=== PATIENT | female | born 1950 | race Caucasian/White ===

== ENCOUNTER → 2017-09-12 | Outpatient (CLI) | payer MEDICARE, OTHER ==
[~2017-09-12] MED LIST: ALDACTONE50 MG PO; ASPIRIN325 PO; EVISTA PO; FENOFIBRATE160 MG PO; FISH OIL 1,001000 M2 PO; LIDODERM 5%1 PATC1 TOP; METFORMIN HCL500 MG PO; OMEPRAZOLE40 MG PO; OXYCODONE HCL5 M1 PO; OXYCONTIN10 M1 PO; PROZAC20 MG PO; SIMVASTATIN40 MG PO; XARELTO10 M1 PO; XARELTO10 MG PO
== END ==
LOC: M.RAD 14:28
DX: Z12.31 Encounter for screening mammogram for malignant neoplasm of breast (principal); Z78.0 Asymptomatic menopausal state

== ENCOUNTER → 2018-09-25 | Outpatient (CLI) | payer MEDICARE, OTHER | LOC: M.RAD 10:40 | DX: Z12.31 Encounter for screening mammogram for malignant neoplasm of breast (principal) ==

== ENCOUNTER → 2018-09-27 | Outpatient (CLI) | payer MEDICARE, OTHER | LOC: M.ULTRA 13:13 | DX: N63.24 Unspecified lump in the left breast, lower inner quadrant (principal) ==

== ENCOUNTER → 2018-10-04 | Outpatient (CLI) | payer MEDICARE, OTHER ==
--- NOTE | 2018-10-05 15:06 | PATH ---
[address] [address] PATHOLOGY RPT PROCEDURE Name: SOHPIA FELIPE Room: [facility] LISSY Fierro#: [id number] Admission: 10/04/18 Date of : 52 Discharge: Report #: [id number] Path Case #: [id number] LCA Accession Number: [id number] . 01 Material submitted: . breast - LEFT BREAST BIOPSY. Modifiers: left . 01 Clinical history: . Left breast stereotactic biopsy for nodule with calcification . 02 Diagnosis: Left breast nodule with calcification, stereotactic biopsy: - INFILTRATING DUCTAL ADENOCARCINOMA, LOW GRADE, SPANNING 4 MM. SEE COMMENT. (RENEE:crystal; 10/05/2018) QMS/10/05/2018 . 02 Comment: Specimen type: Stereotactic biopsy Tumor site: Left breast Tumor quantitation: Approximately 20% of submitted tissues Histologic type: Ductal adenocarcinoma Histologic grade: Low grade (I of III) Tubules, nuclei and mitoses: 1, 2, 1 LVSI: Not identified Microcalcifications: Identified in non-neoplastic tissue Markers: Breast tumor profile pending Block: A2 . . Breast tumor profile studies are pending on A2 and will be the subject of an addendum report. Reviewed with Dr. Colin Menendez, who agrees with the diagnosis. Suha Ruth ([facility] Breast Navigator) notified at approximately 1440 on 10/05/2018. . (RENEE:crystal; 10/05/2018) . 02 Electronically signed: . George Alvarado MD, Pathologist NPI- [id number] . 01 Gross description: . The specimen is received in formalin, labeled "Sophia Felpie, left breast, stereotactic biopsy for nodule with calcification", consist of a blue cassette with fibroadipose core measuring 1.4 cm in length and up to 0.5 cm in diameter. This specimen is transferred into A1. Also received are multiple similar fibrofatty cores measuring 2.4 x 1.1 x 0.7 cm in aggregate, these are entirely submitted in A2-[place] [address] PATHOLOGY RPT PROCEDURE Name: SOPHIA FELIPE Room: [facility] Sri#: [id number] Admission: 10/04/18 Date of : 52 Discharge: Report #: [id number] Path Case #: [id number] . The specimen was excised at 0900 on 10/04/18, placed in formalin at 0905 on 10/04/18, formalin exposure: Approximately 14 hours and 35 minutes. (SWS; 10/04/2018) SHS/SHS . 02 Pathologist provided ICD-10: C50.912 . 02 CPT . 532493 Specimen Comment: A courtesy copy of this report has been sent to Specimen Comment: [phone], , . Specimen Comment: Report sent to ,DR MUÑIZ / DR RUTH Performed at: [address], [place], [place] [address] MD Milton Raya MD Phone: [phone] Performed at: [address] [address] [address], [place], [place] [id number] MD George Alvarado MD Phone: [phone]
== END ==
LOC: M.ULTRA 08:18
DX: C50.912 Malignant neoplasm of unspecified site of left female breast (principal); R92.0 Mammographic microcalcification found on diagnostic imaging of breast

== ENCOUNTER → 2018-10-18 | Outpatient (CLI) | payer MEDICARE, OTHER | LOC: M.LAB 10:30 → M.MRI 11:30 | PROVIDERS: Surgery | DX: C50.812 Malignant neoplasm of overlapping sites of left female breast (principal) ==

== ENCOUNTER → 2018-10-20 | Outpatient (CLI) | payer MEDICARE, OTHER ==
--- NOTE | ~2018-10-20 | CON ---
[address] [address] CONSULTATION Name: DANA SCHAEFFER Room: [facility].#: [id number] Admission: 10/20/18 Attend Phys: Arik Nelson MD Discharge: Date of : 52 Report #: [id number] THIS REPORT FOR: //name// CC: Arik Luz DATE OF SERVICE: 10/20/2018 REFERRING PHYSICIANS: Include Dr. Rito Sampson, Dr. Lawanda Mendoza, Dr. Tonie Luz. PRIMARY SITE AND HISTOPATHOLOGY: The patient has findings consistent with an infiltrating ductal carcinoma involving the left breast. HISTORY OF PRESENT ILLNESS: The patient had a screening mammogram performed on 09/25/2018 and that revealed a new partially circumscribed nodular opacity involving the left breast. There was a left breast ultrasound revealed a hyperechoic mass with internal echoes at the 7 o'clock position, which was suspicious for neoplasm. The patient underwent a stereotactic biopsy on 10/04/2018. This revealed a low-grade infiltrating ductal carcinoma that spanned about 0.4 cm, which was 98% estrogen receptor positive, 98% pressure progesterone receptor positive and HER2/reina was equivocal with FISH being negative. The patient had an MRI on 10/18/2018, and the MRI revealed a small biopsy cavity at the 9 o'clock position of the left inner central breast, which correspond to the stereotactic biopsy site. There was a small benign-appearing nodule. There is no evidence for malignant lymphadenopathy. The patient denied having any palpable masses in her right breast or left breast. She denied having any nipple discharge. She presents to discuss treatment options. PAST MEDICAL HISTORY AND PAST SURGICAL HISTORY: The patient has a history of diabetes, hiatal hernia, history of migraines. She had a tonsillectomy at the age of 22 and the left hip replacement on 01/10/2017. MEDICATIONS: Include she used to take raloxifene and that was discontinued. She is now on fluoxetine, omeprazole, spironolactone, metformin, simvastatin. ALLERGIES: BACTRIM, WHICH CAUSES HIVES. SCOPOLAMINE PATCH CAUSES NAUSEA AND DIZZINESS AND PROGESTERONE MADE HER FEEL ANXIOUS. GYNECOLOGY HISTORY: Menarche at age 11-12, menopause in her 50s. She is 4, para 2, SAB 2 SOCIAL HISTORY: She is a retired nurse. Cigarettes, she does not smoke cigarettes. Ethanol, she does not drink alcohol containing beverages. REVIEW OF SYSTEMS: [place] [address] CONSULTATION Name: DANA SCHAEFFER Room: [facility]#: [id number] Admission: 10/20/18 Attend Phys: Arik Nelson MD Discharge: Date of : 52 Report #: [id number] GENERAL: She denied having fevers or chills. SKIN: She denied having color changes. LYMPH NODES: She denied having enlarged or painful glands in the neck. ENDOCRINE: She denied any hot or cold intolerance. HEMATOLOGY/IMMUNOLOGY: She denied having any recent bleeding. MUSCULOSKELETAL: She denied any arthritis or painful swollen joints. HEAD AND NECK: She denied having any headaches or migraines. RESPIRATORY: She denies having shortness of breath. CARDIOVASCULAR: She denied having palpitations. GASTROINTESTINAL: She denies having any nausea. NEUROLOGIC: She does have some left lower extremity weakness after her hip replacement. FAMILY HISTORY: Mother had breast cancer around the age of 56. She of a glioblastoma at the age of 73. PHYSICAL EXAMINATION: With my nurse, Em Wheeler, present: VITAL SIGNS: Height 5 feet 5 inches, weight 163.6 pounds, blood pressure 127/74, pulse 71, oxygen saturation 96%, respirations 16. LYMPH NODES: She had no palpable cervical or supraclavicular or axillary lymphadenopathy. GENERAL AND PSYCHIATRIC: She was alert, oriented, in no acute distress. EYES: Pupils are equal, round, react to light and accommodation. Extraocular movement was intact. HEAD, EARS, NOSE AND MOUTH:: Mouth had no visible lesions. HEART: Had a regular rate and rhythm without murmur. LUNGS: Clear to auscultation. BREASTS: Left breast had a small 1 cm seroma around the biopsy site. There were no suspicious palpable masses involving the left breast, no suspicious palpable masses involving the right breast. ABDOMEN: Not tender, spleen was not palpable. Liver was at the costal margin. HEART: Regular rate and rhythm without murmur. LUNGS: Clear to auscultation. EXTREMITIES: Had no clubbing, cyanosis or edema. NEUROLOGIC: Cranial nerves 2-12 are intact. Sensation was intact. The patient had 5/5 strength in her extremities. ASSESSMENT AND PLAN: The patient appears to have early stage estrogen receptor positive breast cancer involving the left breast. She was told her treatment options include mastectomy versus breast conservation therapy consisting of lumpectomy and lymph node sampling and radiation therapy. This is based on studies such as NSABP B-06 where patients with early breast cancer were randomized between total mastectomy versus lumpectomy alone versus lumpectomy and radiation therapy, and there was no significant difference in survival at 20 years followup, the addition of radiation therapy to lumpectomy reduced the local failure rate from 39% to 14%. The patient wanted to [place] [address] CONSULTATION Name: DANA SCHAEFFER Room: [facility]#: [id number] Admission: 10/20/18 Attend Phys: Arik Nelson MD Discharge: Date of : 52 Report #: [id number] conservation therapy. So the risks, benefits, logistics of radiation therapy explained to the patient in detail. She gave her witnessed informed consent to proceed with radiation therapy. Also based on the [place] study where they looked at accelerated radiation therapy versus not accelerated radiation therapy as part of breast conservation therapy and found no difference in outcome. The patient will be also offered accelerated radiation therapy if her lymph nodes were not involved with breast cancer. Thank you very much for this consult. By: 1743 1512Dpatrick Nelson MD /nt
== END ==
LOC: M.RTH 05:02
DX: C50.912 Malignant neoplasm of unspecified site of left female breast (principal); E11.9 Type 2 diabetes mellitus without complications; G43.909 Migraine, unspecified, not intractable, without status migrainosus; Z98.890 Other specified postprocedural states; Z79.899 Other long term (current) drug therapy; Z88.1 Allergy status to other antibiotic agents; Z78.0 Asymptomatic menopausal state; Z80.3 Family history of malignant neoplasm of breast

== ENCOUNTER → 2018-10-30 | Day surgery (SDC) | payer MEDICARE, OTHER ==
[~2018-10-30] MED LIST changes: +HYDROCODONE-AP1 EAC6 PO
--- NOTE | ~2018-10-30 | OP ---
[address] [address] OPERATIVE REPORT Name: DANA SCHAEFFER Room: [facility].#: [id number] Admission: 10/30/18 Attend Phys: Rito Sampson DO Discharge: Date of : 52 Report #: [id number] THIS REPORT FOR: //name// CC: Rito MUÑIZ DO Tonie Muñiz DATE OF SERVICE: 10/30/2018 REFERRING PHYSICIAN: Tonie Muñiz D.O. PREOPERATIVE DIAGNOSIS: Invasive ductal carcinoma of the left breast. POSTOPERATIVE DIAGNOSIS: Invasive ductal carcinoma of the left breast. PROCEDURE: Left breast lumpectomy with wire localization and left axillary sentinel lymph node biopsy. SURGEON: Rito Sampson D.O. INTERNET MARKETING CONSULTANT: Miguel Lares D.O. SECOND YARD OPERATOR: Katelin Atwood D.O. ANESTHESIA: General endotracheal. ESTIMATED BLOOD LOSS: Less than 30 mL. COMPLICATIONS: None. DESCRIPTION OF PROCEDURE: After obtaining proper consents and discussing risks and complications with the patient, she was taken to the Radiology Department where she underwent wire localization of a previously biopsied left breast mass. She also underwent a nuclear medicine injection for left axillary sentinel lymph node biopsy. She was then brought back to the preoperative area. The films were reviewed and then she was taken to the operating room where she was administered general anesthesia with an LMA. She was then prepped and draped in the usual fashion. We did inject 5 mg of Lymphazurin blue dye into the periareolar region of the left breast and this was massaged for 5 minutes prior to starting any surgery. At this point, I then made a small incision around the patient's wire, which was in the left breast. I used a sharp dissection with Metzenbaum scissors to dissect the area around the wire and beyond it out. Once the specimen was completely removed, it was marked using a vector marking system painting the 6 areas around the specimen. The specimen was then sent for radiologic confirmation that it contained the clip from the previous biopsy site. While we awaited that, I did begin the [place] [address] OPERATIVE REPORT Name: DANA SCHAEFFER Room: [facility].#: [id number] Admission: 10/30/18 Attend Phys: Rito Sampson DO Discharge: Date of : 52 Report #: [id number] dissection. First Neoprobe was used to identify the area of most uptake in the left axilla. A small 3 cm incision was then made in the left axilla, carried down through the skin into the subcutaneous tissue using electrocautery for hemostasis. Utilizing the Neoprobe during the entire procedure, I did identify an area of most uptake and I dissected along this area. We were able to actually see the Lymphazurin blue dye as it coursed through some small lymphatic vessels going to the lymph node, which had the most uptake as well as a blue dye color. This lymph node was excised using blunt and sharp dissection. I also used metallic clips to assure hemostasis and to take the lymphatic vessels going into the lymph node. Following this, on the back table, we did use the Neoprobe to check for uptake. There were quite high values; however, when I used the Neoprobe in the axilla again, we did obtain more readings in the axilla, which were consistent with at least 1 more lymph node. I continued dissection until we identified a lymph node, which was slightly larger than the previous one, but had no blue color going to it, but we did have high Neoprobe readings. This lymph node was also excised and sent off as a lymph node #2 after it was checked on the back table and again had high readings. I then used the Neoprobe again in the axilla and had minimal readings at all on that. Next, we assured hemostasis within both wounds and after the x-ray had returned that said that the clip was in the middle of our specimen, we closed the left breast lumpectomy with 3-0 Vicryl suture for the deeper subcutaneous tissue and a running 4-0 Monocryl subcuticular stitch was used to close the skin. Similarly, the incision in the axilla was closed using a 3-0 Vicryl suture for the deeper subcutaneous tissue and 4-0 Monocryl was used to close the skin layer as well. We did inject both areas with 0.5% Marcaine without epinephrine. Sterile dressings were then placed. Sponge, needle and instrument counts were all correct at the end of the procedure. By: 1113 1139Adam Selin Sampson DO /nidia
[2018-10-30 08:26] LABS: HEMATOCRIT 38.8 % (37.0-47.0); HEMOGLOBIN 12.3 gm/dL (12.0-15.0); MCH 24.3 pg (26.0-34.0); MCHC 31.7 g/dL (28.0-37.0); MCV 76.7 fL (80.0-100.0); MPV 9.1 fl. (7.2-11.1); RBC 5.07 mil/uL (4.20-5.00); RDW-CV 16.7 % (10.5-14.5); WBC 7.6 thou/uL (4.0-11.0)
[2018-10-30 08:44] LABS: CREATININE 1.2 mg/dL (0.6-1.3)
[2018-10-30 08:48] LABS: ALBUMIN 3.8 g/dL (3.4-5.0); TOTAL BILIRUBIN 0.3 mg/dL (<0.1-1.0); TOTAL PROTEIN 7.2 g/dL (6.4-8.2)
--- NOTE | 2018-10-30 11:47 | EKG ---
[place] [address] ELECTROCARDIOGRAM REPORT Name: DANA SCHAEFFER Room: [facility]#: [id number] Admission: 10/30/18 Attend Phys: Rito Sampson DO Discharge: Date of : 52 Report #: [id number] THIS REPORT FOR: //name// [facility] Test Date: 2018-10-30 Test Time: 08:22:44 Pat Name: DANA SCHAEFFER Department: Room: Gender: F Live In Housekeeper: MIRLANDE : 1950 Requested By: Rito Sampson Order Number: [id number] Reading MD: Sekou Menezes Measurements Intervals [place] Rate: 71 P: 35 MD: 194 QRS: 40 QRSD: 97 T: 35 QT: 422 QTc: 459 Interpretive Statements Sinus rhythm Borderline repolarization abnormality Compared to ECG 12/30/2016 09:06:22 No significant changes Electronically Signed On 10-30-2018 11:46:44 CDT by Sekou Menezes [email or web address] <ELECTRONICALLY SIGNED> By: Sekou Menezes MD, [facility] 10/30/18 1146 0822 1 Sekou Menezes MD, FACC /EPI
--- NOTE | 2018-11-03 14:06 | PATH ---
[address] [address] PATHOLOGY RPT PROCEDURE Name: SOPHIA FELIPE Room: [facility].#: [id number] Admission: 10/30/18 Date of : 52 Discharge: Report #: [id number] Path Case #: [id number] LCA Accession Number: [id number] . 01 Material submitted: . PART A: breast - LEFT BREAST MASS. Modifiers: left PART B: lymph node - LEFT AXILLARY SENTINEL LYMPH NODE #1. Modifiers: left, axillary tail, 1 PART C: lymph node - LEFT AXILLARY SENTINEL LYMPH NODE #2. Modifiers: left, axillary tail, 2 . 01 Clinical history: . Left infiltrating duct adenocarcinoma . 02 Diagnosis: A. Breast mass, left, lumpectomy: - Previous biopsy site present. - No evidence of residual carcinoma. - Ductal epithelial hyperplasia, focal. . (Please see comment). . B. "Left axillary sentinel lymph node #1", biopsy: - One lymph node with no evidence of carcinoma (0/1). - Cytokeratin immunoperoxidase stain negative. . C. "Left axillary sentinel lymph node #2", biopsy: - One lymph node with no evidence of carcinoma (0/1). - Cytokeratin immunoperoxidase stain negative. (SKM:[facility] 11/03/2018) [facility]/11/03/2018 . 02 Comment: This patient's core needle biopsy specimen ([id number]) showed an infiltrating ductal adenocarcinoma, low grade, which measured 4 mm in greatest dimension. This current specimen contains a previous biopsy site which measures 1.5 cm in greatest dimension. The previous biopsy site is located a minimum of 4 mm away from the closest (posterior) margin of excision. . This patient's previous breast core needle biopsy showed the following breast prognostic markers: Estrogen - 98% positive; progesterone 98% positive, Ssv1Sub - 2+, equivocal and a Ki-67 index of 10%. (SK:[facility] 11/03/2018) . 02 Electronically signed: . Yovanny Moreira MD, Pathologist NPI- [id number] [place] [address] PATHOLOGY RPT PROCEDURE Name: MAKSIMSOPHIA SUE [id number] Admission: 10/30/18 Date of : 52 Discharge: Report #: [id number] Path Case #: [id number] . 01 Gross description: . A. The specimen is received in formalin, labeled "Sophia Felipe, left breast mass", is an oriented fibroadipose tissue weighing 19 g with a needle wire in situ and measuring 5.2 x 3.0 x 2.2 cm. The specimen is inked by the surgeon as per Vector surgical tissue orientation system (MarginMarker) as follows: Anterior = green, inferior = blue, lateral = orange, medial = yellow, posterior = black and superior = red. The specimen is serially section from medial to lateral into 12 slices to reveal a hemorrhagic previous biopsy site consisting of a metallic marker in slice #4. There are few perez, velásquez homogeneous area surrounding the previous biopsy site, extending from Slice #1 to Slice #5. The remaining parenchyma is yellow lobulated with scant fibrous tissue interspersed. Photographs are taken. This specimen was reviewed by Dr. Bonilla Mendenhall at [facility] and grossed as per his instructions. The specimen is entirely submitted as follows: A1. Slice 1, medial margin, perpendicular sectioned A2-A11, Slice #2 to Slice # 11, contiguous sections (A4 = Slice with metallic marker) A12. Slice # 12, lateral margin, perpendicular sectioned Specimen excised at: 1129 on 10/30/18, placed in formalin at: 1211 on 10/30/18, formalin exposure: Approximately 35 hours and 29 minutes. . B. The specimen is received in formalin, labeled "Sophia Felipe, left axillary sentinel lymph node #1", is a yellow lobulated adipose tissue measuring 2.2 x 1.6 x 0.5 cm. Sectioning reveals a velásquez-pink rubbery lymph node measuring 0.8 x 0.7 x 0.3 cm. The specimen is entirely submitted as follows: B1. Lymph node, trisected B2. Remaining adipose tissue. . C. The specimen is received in formalin, labeled "Sophia Felipe, left axillary sentinel lymph node #2", is a yellow lobulated adipose tissue measuring 3.0 x 1.5 x 1.3 cm. Sectioning reveals a velásquez, rubbery lymph node measuring 1.5 x 1.2 x 1.0 cm. The specimen is entirely submitted as follows: C1-C2. Lymph node, serially sectioned C3. Remaining adipose tissue. (SWS; 10/31/2018) SHS/SHS . 02 Pathologist provided ICD-10: C50.912 . 02 CPT . 369795, 474875, 240925, [id number] Specimen Comment: A courtesy copy of this report has been sent to Specimen Comment: [phone], . Specimen Comment: Report sent to / DR MUÑIZ [address] [address] PATHOLOGY RPT PROCEDURE Name: SOPHIA FELIPE Room: [facility]#: [id number] Admission: 10/30/18 Date of : 52 Discharge: Report #: [id number] Path Case #: [id number] Performed at: 01 [facility] [place] [address] [facility] [address] [facility] [address], [place], [place] [address] MD Milton Raya MD Phone: [phone] Performed at: 02 [facility] [address] [place], [place] [address] MD George Alvarado MD Phone: [phone]
== END | disposition home or self-care (01) ==
LOC: M.SUR 08:00
PROVIDERS: Surgery
DX: N60.82 Other benign mammary dysplasias of left breast (principal); E78.5 Hyperlipidemia, unspecified; E66.09 Other obesity due to excess calories; Z98.890 Other specified postprocedural states; Z96.642 Presence of left artificial hip joint; Z80.8 Family history of malignant neoplasm of other organs or systems; Z88.8 Allergy status to other drugs, medicaments and biological substances; Z79.899 Other long term (current) drug therapy; Z88.2 Allergy status to sulfonamides; Z79.82 Long term (current) use of aspirin; Z82.3 Family history of stroke; Z68.27 Body mass index [BMI] 27.0-27.9, adult

== ENCOUNTER → 2019-04-19 | Outpatient (CLI) | payer MEDICARE, OTHER | LOC: M.ULTRA 07:57 | DX: K80.80 Other cholelithiasis without obstruction (principal); K76.0 Fatty (change of) liver, not elsewhere classified; K76.9 Liver disease, unspecified ==

== ENCOUNTER → 2019-05-08 | Outpatient (CLI) | payer MEDICARE, OTHER ==
[2019-05-08 09:25] LABS: ABSOLUTE BASOPHILS 0.1 thou/uL (0.0-0.2); ABSOLUTE EOSINOPHILS 0.1 thou/uL (0.0-0.7); ABSOLUTE LYMPHOCYTES 1.6 thou/uL (0.8-5.3); ABSOLUTE MONOCYTES 0.5 thou/uL (0.0-1.2); ABSOLUTE NEUTROPHILS 3.8 thou/uL (1.6-8.1); BASOPHILS 0.9 %; EOSINOPHILS 2.2 %; HEMATOCRIT 43.7 % (37.0-47.0); HEMOGLOBIN 14.9 gm/dL (12.0-15.0); MCH 29.7 pg (26.0-34.0); MCV 87.2 fL (80.0-100.0); MONOCYTES 8.1 %; MPV 8.9 fl. (7.2-11.1); NUCLEATED RBCS 0 /100WBC; PLATELET COUNT* 258 thou/uL (150-400); POLYS 62.8 %; RBC 5.01 mil/uL (4.20-5.00); RDW-CV 14.7 % (10.5-14.5); WBC 6.1 thou/uL (4.0-11.0)
[2019-05-08 09:41] LABS: ALBUMIN 3.9 g/dL (3.4-5.0); CALCIUM 9.4 mg/dL (8.5-10.1); CREATININE 1.1 mg/dL (0.6-1.3); TOTAL BILIRUBIN 0.4 mg/dL (<0.1-1.0); TOTAL PROTEIN 7.3 g/dL (6.4-8.2)
== END ==
LOC: M.RAD 08:39
PROVIDERS: Radiology Radiation Oncology
DX: Z08 Encounter for follow-up examination after completed treatment for malignant neoplasm (principal); Z85.3 Personal history of malignant neoplasm of breast

== ENCOUNTER → 2019-10-05 | Outpatient (CLI) | payer MEDICARE, OTHER | LOC: M.RAD 10:28 | DX: C50.312 Malignant neoplasm of lower-inner quadrant of left female breast (principal); Z17.0 Estrogen receptor positive status [ER+] ==

== ENCOUNTER → 2019-12-12 | Outpatient (CLI) | payer MEDICARE, OTHER ==
--- NOTE | 2019-12-12 13:38 | 2DMMODE ---
[place] [address] 2 D/M-MODE ECHOCARDIOGRAM Name: DANA SCHAEFFER Room: [facility]#: [id number] Admission: 12/12/19 Attend Phys: Pedro Davies, Discharge: Date of : 52 Date of Service: 12/12/19 1337 Report #: [id number] THIS REPORT FOR: cc: Tonie Luz Linda J. DO Holkins, John M. MD [facility] ~ APPROVED REPORT Study performed: 12/12/2019 11:19:07 EXAM: Comprehensive 2D, Doppler, and color-flow Echocardiogram Patient Location: Out-Patient BSA: 1.81 HR: 70 bpm BP: 120/72 mmHg Other Information Study Quality: Good Indications Chest Pain 2D Dimensions IVSd: 9.35 (7-11mm) LVOT Diam: 19.15 (18-24mm) LVDd: 41.04 mm PWd: 7.26 (7-11mm) Ascending Ao: 28.50 (22-36mm) LVDs: 21.55 (25-40mm) Aortic Root: 25.94 mm Volumes Left Atrial Volume (Systole) LA ESV Index: 9.50 mL/m2 Aortic Valve AoV Peak Qamar.: 1.10 m/s AO Peak Gr.: 4.84 mmHg LVOT Max P.20 mmHg AO Mean Gr.: 2.51 mmHg LVOT Mean P.15 mmHg LVOT Max V: 1.14 m/s AO V2 VTI: 24.77 cm LVOT Mean V: 0.65 m/s KIMBERLEE (VTI): 2.68 cm2 LVOT V1 VTI: 23.02 cm Mitral Valve E/A Ratio: 1.13 [place] [address] 2 D/M-MODE ECHOCARDIOGRAM Name: DANA SCHAEFFER Room: [facility]#: [id number] Admission: 12/12/19 Attend Phys: Pedro Davies, Discharge: Date of : 52 Date of Service: 12/12/19 1337 Report #: [id number] MV Decel. Time: 165.76 ms MV E Max Qamar.: 0.77 m/s MV PHT: 48.07 ms MVA (PHT): 4.58 cm2 TDI E/Lateral E': 8.56 E/Medial E': 6.42 Medial E' Qamar.: 0.12 m/s Lateral E' Qamar.: 0.09 m/s Pulmonary Valve PV Peak Qamar.: 0.86 m/s PV Peak Gr.: 2.95 mmHg Tricuspid Valve RAP Estimate: 5.00 mmHg TR Peak Gr.: 16.66 mmHg RVSP: 21.66 mmHg PA Pressure: 21.66 mmHg Left Ventricle The left ventricle is normal size. There is normal LV segmental wall motion. There is normal left ventricular wall thickness. Left ventricular systolic function is normal. The left ventricular ejection fraction is within the normal range. LVEF is 60-65%. The left ventricular diastolic function is normal. Right Ventricle The right ventricle is normal size. The right ventricular systolic function is normal. Atria The left atrium size is normal. The right atrium size is normal. Aortic Valve The aortic valve is normal in structure. No aortic regurgitation is present. There is no aortic valvular stenosis. Mitral Valve The mitral valve is normal in structure. There is no mitral valve regurgitation noted. No evidence of mitral valve stenosis. Tricuspid Valve The tricuspid valve is normal in structure. Mild tricuspid regurgitation[place] [address] 2 D/M-MODE ECHOCARDIOGRAM Name: DANA SCHAEFFER Room: [facility]#: [id number] Admission: 12/12/19 Attend Phys: Pedro Davies, Discharge: Date of : 52 Date of Service: 12/12/19 1337 Report #: [id number] The pulmonary valve is normal in structure. There is no pulmonic valvular regurgitation. Great Vessels The aortic root is normal in size. IVC is normal in size and collapses >50% with inspiration. Pericardium There is no pericardial effusion. <Conclusion> The left ventricle is normal size. There is normal left ventricular wall thickness. Left ventricular systolic function is normal. The left ventricular ejection fraction is within the normal range. LVEF is 60-65%. The left ventricular diastolic function is normal. The right ventricle is normal size. The left atrium size is normal. The aortic valve is normal in structure. The mitral valve is normal in structure. The tricuspid valve is normal in structure. Mild tricuspid regurgitation. IVC is normal in size and collapses >50% with inspiration. There is no pericardial effusion. There is normal LV segmental wall motion. <ELECTRONICALLY SIGNED> By: Dejon Castillo MD, FACC 12/12/19 1337 133 133 Dejon Castillo MD, FACC /INF
--- NOTE | 2019-12-13 08:17 | CARDNUC ---
[place] [address] CARDIAC NUCLEAR IMAGING REPORT Name: DANA SCHAEFFER Room: [facility]#: [id number] Admission: 12/12/19 Attend Phys: Pedro Davies, Discharge: Date of : 52 Date of Service: 12/13/19 0816 Report #: [id number] THIS REPORT FOR: cc: Tonie Luz Linda J. DO Liston, Michael J. MD [facility] ~ APPROVED REPORT Study performed: 12/12/2019 09:55:37 Exam: Nuclear Stress Test Indication: Chest pain, Dyspnea Patient Location: Out-Patient Stress Tech: Jasmin Simmons Stress Nurse: Yady Ashton RN Ht: 5 ft 5 in Wt: 163 lbs BSA: 1.81 m2 BMI: 27.12 Medical History Medical History: Hyperlipidemia, Diabetes Medications: simvastatin, spironalactone Allergies: progesterone, sulfa,erythromycin, gentamicin, scopolamine Cardiac Risk Factors: Age, Hyperlipidemia, DM Exercise History: Indeterminate Stress Test Details Stress Test: Pharmacologic stress testing performed using 0.4 mg of regadenoson per 5 mL given IV over 10 seconds. Reason for pharmacologic stress test: physical limitation. HR Resting HR: 63 bpm Max Heart Rate (APMHR): 152 bpm Max HR Achieved: 111 bpm Target HR (85% APMHR): 129 bpm % of APMHR: 73 Recovery HR: 70 bpm BP Resting BP: 124/50 mmHg Max BP: 131/73 mmHg ECG Resting ECG: [place] [address] CARDIAC NUCLEAR IMAGING REPORT Name: DANA SCHAEFFER Room: [facility]#: [id number] Admission: 12/12/19 Attend Phys: Pedro Davies, Discharge: Date of : 52 Date of Service: 12/13/19 0816 Report #: [id number] Stress ECG: Sinus Tachycardia ST Change: None Arrhythmia: None Recovery ECG: Sinus Rhythm Recovery ST Change: None Recovery Arrhythmia: None Clinical Reason for Termination: Completed protocol Exercise duration: 0 min sec Exercise capacity: 1 METs The patient tolerated Lexiscan infusion without significant cardiac symptoms. Nurse Comments 60 mg ivp caffeine given for nausea Stress ECG Conclusion The baseline twelve-lead EKG shows sinus rhythm without significant ST segment or T wave abnormality. EKGs obtained during and post Lexiscan infusion show sinus rhythm and sinus tachycardia with no significant ST segment or T wave changes when compared to baseline. There were no stress-induced arrhythmias. NM EXAM: Myocardial Perfusion REST/STRESS Imaging Protocol: Rest Tc-99m/Stress Tc-99m 1 day Resting Data Rest SPECT myocardial perfusion imaging was performed in supine position 30 minutes following the intravenous injection of 11.0 mCi of Tc-99m Sestamibi. Time of rest injection: 08:00 The images were gated to evaluate regional wall motion and calculate left ventricular ejection fraction. Administration Route: IV Administration Site: Right Arm Pharmacologic Stress Pharmacologic stress test was performed by injecting Regadenoson 0.4 mg IV push followed by the intravenous injection of 31.2 mCi of Tc-99m Sestamibi. Time of stress injection: 09:55 Administration Route: IV Administration Site: Right Arm Heart Rate at time of stress injection: 111 bpm. Gated Stress SPECT was performed 40 [place] [address] CARDIAC NUCLEAR IMAGING REPORT Name: DANA SCHAEFFER Room: [facility]#: [id number] Admission: 12/12/19 Attend Phys: Pedro Davies, Discharge: Date of : 52 Date of Service: 12/13/19 0816 Report #: [id number] injection. The images were gated to evaluate regional wall motion and calculate left ventricular ejection fraction. Prone imaging was performed. Study Quality Study: Good Artifact: No artifact Study Data At rest, the left ventricular ejection fraction was 72%.. Post stress, the left ventricular ejection was 76%.. TID = 0.82. Perfusion Perfusion images obtained at rest and post Lexiscan stress showed uniform uptake of the radioisotope throughout the myocardium without defect. Wall Motion Normal left ventricular wall motion. Nuclear Conclusion ECG Findings: negative for ischemia Clinical Findings: negative for ischemia Nuclear Findings: negative for ischemia Exercise Capacity: not assessed Left Ventricular Function: normal Risk Study: low Perfusion images show no defect to suggest infarct or ischemia. Left ventricular systolic function is normal on gated studies. This is a low risk study. <Conclusion> The baseline twelve-lead EKG shows sinus rhythm without significant ST segment or T wave abnormality. EKGs obtained during and post Lexiscan infusion show sinus rhythm and sinus tachycardia with no significant ST segment or T wave changes when compared to baseline. There were no stress-induced arrhythmias. <ELECTRONICALLY SIGNED> By: Pedro Davies MD, FACC 12/13/19815 5 5 Pedro Davies MD, FACC /INF
== END ==
LOC: M.CRD 11-26 08:55 → M.NUC 12-10 13:00
PROVIDERS: ATTEND Internal Medicine Cardiovascular Disease
DX: I07.1 Rheumatic tricuspid insufficiency (principal); R07.9 Chest pain, unspecified

== ENCOUNTER → 2020-10-06 | Outpatient (CLI) | payer MEDICARE, OTHER ==
[2020-10-06 10:56] LABS: CALCIUM 10.1 mg/dL (8.5-10.1); CREATININE 1.1 mg/dL (0.6-1.3); POTASSIUM 4.1 mmol/L (3.5-5.1); TOTAL BILIRUBIN 0.5 mg/dL (<0.1-1.0); TOTAL PROTEIN 7.5 g/dL (6.4-8.2)
== END ==
LOC: M.RAD 09:47
PROVIDERS: ATTEND Radiology Radiation Oncology
DX: C50.312 Malignant neoplasm of lower-inner quadrant of left female breast (principal); Z17.0 Estrogen receptor positive status [ER+]; M85.861 Other specified disorders of bone density and structure, right lower leg; Z78.0 Asymptomatic menopausal state

== ENCOUNTER → 2021-05-25 | Outpatient (CLI) | payer MEDICARE, OTHER | LOC: M.RAD 10:00 | PROVIDERS: ATTEND Family Medicine | DX: R06.02 Shortness of breath (principal); R05.9 Cough, unspecified; K44.9 Diaphragmatic hernia without obstruction or gangrene ==